=== PATIENT | female | born 1930 | race Caucasian/White ===

== ENCOUNTER 2016-10-04 16:40 | Inpatient (IN) | payer OTHER ==
[~2016-10-04] VITALS: Ht 160 cm; Wt 71.9 kg
[~2016-10-04 16:40] MED LIST: CARDURA2 M1 PO; HYDROCHLOROTHIA25 MG PO; LEVOTHROID,SYN0.1 MG PO; LO-DOSE ASPIRIN81 M2 PO; LOTENSIN40 MG PO; MIRALAX255 GM PO; NORVASC2.5 MG PO; SYNTHROID75 MCG PO; ULTRAM50 MG PO; VALSARTAN320 MG PO; VERAPAMIL ER180 MG PO
[2016-10-04] MEDS ORDERED: OMEPRAZOLE20 MG PO (17:28)
[2016-10-04] MEDS ORDERED: [UNRECOGNIZED DRUG - REMARK] (17:29)
[2016-10-04 17:43] LABS: HEMATOCRIT 33.6 % (36.0-46.0); MCH 30.7 PG (29.0-34.0); MCHC 35.4 G/DL (30.0-36.0); MCV 86.6 FL (83-99); MEAN PLAT.VOLUME 9.7 uM^3 (9.5-12.4); PLATELET COUNT 277 K/uL (156-360); RBC DIS.WIDTH-CV 12.2 % (11.8-14.6); RBC DIS.WIDTH-SD 37.9 % (39-53); RED BLOOD COUNT 3.88 M/uL (3.80-5.20); WHITE BLOOD COUNT 12.2 K/uL (4.1-10.2)
[2016-10-04 17:53] LABS: CHLORIDE 107 mEq/L (99-109); POTASSIUM 4.1 mEq/L (3.7-5.4); SODIUM 137 mEq/L (136-147)
[2016-10-04 17:54] LABS: MAGNESIUM 1.6 mg/dL (1.3-2.7)
[2016-10-04 17:55] LABS: GLUCOSE 202 mg/dL (70-99)
[2016-10-04 17:57] LABS: ANION GAP 15 MEQ/L (2-14)
[2016-10-04 17:59] LABS: GFR ESTIMATE (CALCULATED) 45 mL/min/
[2016-10-04 18:00] LABS: UREA NITROGEN (BUN) 23 mg/dL (9-23)
[2016-10-04 18:05] LABS: TROP-I INTERPRETATION NEGATIVE; TROPONIN-I < 0.01 ng/mL (0.0-0.30)
[2016-10-04 18:10] LABS: INFLUENZA A VIRAL ANTIGEN NEGATIVE; INFLUENZA B VIRAL ANTIGEN NEGATIVE
[2016-10-04 21:14] LABS: ADD MIUA? YES; BILIRUBIN NEGATIVE; BLOOD NEGATIVE; COLOR YELLOW ((YELLOW)); GLUCOSE (STRIP) 250; KETONES 15; LEUKOCYTES SMALL; NITRITE NEGATIVE; PROTEIN (STRIP) NEGATIVE; SPECIFIC GRAVITY 1.019 (1.000-1.030); UROBILINOGEN 0.2 MG/DL (0.2-1.0)
[2016-10-04 21:25] LABS: BACTERIA NONE SEEN; CASTS NONE SEEN /LPF; CRYSTALS NONE SEEN; EPITHELIAL CELLS RARE; MUCUS NONE SEEN; PATHOLOGICAL CAST NONE SEEN; RED BLOOD CELLS 0-5 /HPF (0-5); SMALL ROUND CELL NONE SEEN; UCUL ADDED? NO; WHITE BLOOD CELLS 0-5 /HPF (0-5); YEAST-LIKE CELL NONE SEEN
[2016-10-04 23:21] VITALS: BP 196/89
[2016-10-04 23:39] LABS: POINT-OF-CARE METER ID UU13113700
[2016-10-05] VITALS (7 sets, daily range): BP systolic 137–191; BP diastolic 57–88
[2016-10-05 00:55] LABS: TROP-I INTERPRETATION NEGATIVE; TROPONIN-I < 0.01 ng/mL (0.0-0.30)
[2016-10-05 06:11] LABS: BASOPHIL COUNT 0.1 K/uL (0-0.1); EOSINOPHIL (%) 1.4 % (0-5); EOSINOPHIL COUNT 0.2 K/uL (0-0.3); IMMATURE GRANULOCYTE (%) 0.4 % (0.0-0.7); IMMATURE GRANULOCYTE COUNT 0.1 K/uL; LYMPHOCYTE COUNT 2.6 K/uL (1.0-2.8); MCH 30.2 PG (29.0-34.0); MCHC 34.1 G/DL (30.0-36.0); MCV 88.6 FL (83-99); MEAN PLAT.VOLUME 9.9 uM^3 (9.5-12.4); MONOCYTE (%) 7.8 % (3-12); MONOCYTE COUNT 0.9 K/uL (0-0.8); NEUTROPHIL (%) 66.9 % (45-76); NEUTROPHIL COUNT 7.5 K/uL (1.8-6.4); PLATELET COUNT 254 K/uL (156-360); RBC DIS.WIDTH-CV 12.5 % (11.8-14.6); RBC DIS.WIDTH-SD 40.6 % (39-53); RED BLOOD COUNT 3.61 M/uL (3.80-5.20); WHITE BLOOD COUNT 11.2 K/uL (4.1-10.2)
[2016-10-05 06:31] LABS: ALKALINE PHOSPHATASE 40 IU/L (3-129); ANION GAP 7 MEQ/L (2-14); CHLORIDE 107 MEQ/L (99-109); DIRECT BILIRUBIN 0.1 mg/dL (0.0-0.3); GFR ESTIMATE (CALCULATED) 50 mL/min/; GLUCOSE 98 mg/dL (70-99); HDL CHOLESTEROL 30 MG/DL (Desirable>=50); LDL CHOLESTEROL 112 mg/dL (Desirable<100); NON-HDL CHOLESTEROL 144 mg/dL (Desirable<160); POTASSIUM 3.9 MEQ/L (3.7-5.4); SAMPLE HEMOLYSIS CHECK 0; SAMPLE ICTERIC CHECK 0; SAMPLE LIPEMIA CHECK 0; SODIUM 140 MEQ/L (136-147); TOTAL BILIRUBIN 0.6 MG/DL (0.0-1.0); TOTAL CHOLESTEROL 174 mg/dL (Desirable<200); TRIGLYCERIDES 159 MG/DL (Normal: <150); UREA NITROGEN (BUN) 18 mg/dL (9-23)
[2016-10-05 06:43] LABS: TROP-I INTERPRETATION NEGATIVE; TROPONIN-I 0.01 ng/mL (0.0-0.30)
[2016-10-05 12:23] LABS: POINT-OF-CARE METER ID UU13113700
[2016-10-05] MEDS ORDERED: AMLODIPINE BES2.5 MG PO (16:42)
[2016-10-05] MEDS ORDERED: HYDRALAZINE HCL25 MG PO (16:42)
[2016-10-05 16:55] LABS: POINT-OF-CARE METER ID UU13113700
[2016-10-05 22:46] LABS: POINT-OF-CARE METER ID UU13113700
[2016-10-06 00:18] VITALS: BP 150/64
[2016-10-06 05:33] VITALS: BP 145/63
[2016-10-06 06:08] LABS: BASOPHIL COUNT 0.1 K/uL (0-0.1); EOSINOPHIL (%) 3.1 % (0-5); EOSINOPHIL COUNT 0.3 K/uL (0-0.3); HEMATOCRIT 31.6 % (36.0-46.0); IMMATURE GRANULOCYTE (%) 0.9 % (0.0-0.7); IMMATURE GRANULOCYTE COUNT 0.1 K/uL; LYMPHOCYTE COUNT 2.6 K/uL (1.0-2.8); MCH 30.7 PG (29.0-34.0); MCHC 33.9 G/DL (30.0-36.0); MCV 90.5 FL (83-99); MEAN PLAT.VOLUME 9.9 uM^3 (9.5-12.4); MONOCYTE (%) 9.7 % (3-12); NEUTROPHIL (%) 59.5 % (45-76); NEUTROPHIL COUNT 5.9 K/uL (1.8-6.4); PLATELET COUNT 248 K/uL (156-360); RBC DIS.WIDTH-SD 42.4 % (39-53); RED BLOOD COUNT 3.49 M/uL (3.80-5.20); WHITE BLOOD COUNT 9.9 K/uL (4.1-10.2)
[2016-10-06 06:29] LABS: ANION GAP 8 MEQ/L (2-14); CHLORIDE 107 MEQ/L (99-109); GFR ESTIMATE (CALCULATED) 50 mL/min/; GLUCOSE 94 mg/dL (70-99); POTASSIUM 4.1 MEQ/L (3.7-5.4); SAMPLE HEMOLYSIS CHECK 0; SAMPLE ICTERIC CHECK 0; SAMPLE LIPEMIA CHECK 0; SODIUM 139 MEQ/L (136-147); UREA NITROGEN (BUN) 18 mg/dL (9-23)
[2016-10-06 08:05] VITALS: BP 139/62
[2016-10-06 09:30] LABS: ALKALINE PHOSPHATASE 38 IU/L (3-129); DIRECT BILIRUBIN 0.1 mg/dL (0.0-0.3); TOTAL BILIRUBIN 0.5 MG/DL (0.0-1.0)
[2016-10-06 11:54] VITALS: BP 148/65
[2016-10-06 12:40] LABS: POINT-OF-CARE METER ID UU13113831
[2016-10-06 15:57] VITALS: BP 147/67
[2016-10-06 17:43] LABS: POINT-OF-CARE METER ID UU14162513
== END 2016-10-06 20:16 | disposition home or self-care (01) | DRG 312 ==
LOC: EME 16:40 → EDOF 21:06 → 5WEST 23:03
PROVIDERS: Emergency Medicine; Hospitalist; Physician Assistant Medical
DX: R55 Syncope and collapse (principal); I65.21 Occlusion and stenosis of right carotid artery; I65.01 Occlusion and stenosis of right vertebral artery; R11.2 Nausea with vomiting, unspecified; S00.212A Abrasion of left eyelid and periocular area, initial encounter; S00.12XA Contusion of left eyelid and periocular area, initial encounter; W18.30XA Fall on same level, unspecified, initial encounter; Y92.002 Bathroom of unspecified non-institutional (private) residence as the place of occurrence of the external cause; I10 Essential (primary) hypertension; E78.5 Hyperlipidemia, unspecified; E11.9 Type 2 diabetes mellitus without complications; K21.9 Gastro-esophageal reflux disease without esophagitis; K58.9 Irritable bowel syndrome, unspecified; E03.9 Hypothyroidism, unspecified; M19.90 Unspecified osteoarthritis, unspecified site; I73.9 Peripheral vascular disease, unspecified; G89.29 Other chronic pain; M54.5 Low back pain; Z66 Do not resuscitate; Z51.5 Encounter for palliative care; Z88.5 Allergy status to narcotic agent; Z79.82 Long term (current) use of aspirin
CPT/HCPCS: 70450; 70496; 70498; 71020; 80048; 80061; 80076; 81003; 82948; 83735; 84443; 84484; 85025; 85027; 87502; 93005; 93880; 99281; 99285; G0378; J0360; J1644; J1815; J2405; J7030

== ENCOUNTER 2016-10-17 21:13 | Emergency (ER) | payer OTHER ==
[~2016-10-17] VITALS: Ht 160 cm; Wt 70.5 kg
[~2016-10-17 21:13] MED LIST changes: +AMLODIPINE BES2.5 MG PO; +HYDRALAZINE HCL25 MG PO; +OMEPRAZOLE20 MG PO; +[UNRECOGNIZED DRUG - REMARK]
[2016-10-17 22:21] LABS: BASOPHIL COUNT 0.1 K/uL (0-0.1); EOSINOPHIL (%) 0.7 % (0-5); EOSINOPHIL COUNT 0.1 K/uL (0-0.3); HEMATOCRIT 34.8 % (36.0-46.0); IMMATURE GRANULOCYTE (%) 0.5 % (0.0-0.7); IMMATURE GRANULOCYTE COUNT 0.4 K/uL; LYMPHOCYTE COUNT 1.1 K/uL (1.0-2.8); MCH 31.1 PG (29.0-34.0); MCHC 35.3 G/DL (30.0-36.0); MCV 88.1 FL (83-99); MONOCYTE COUNT 0.5 K/uL (0-0.8); NEUTROPHIL COUNT 6.4 K/uL (1.8-6.4); RBC DIS.WIDTH-CV 12.4 % (11.8-14.6); RED BLOOD COUNT 3.95 M/uL (3.80-5.20); WHITE BLOOD COUNT 8.2 K/uL (4.1-10.2)
[2016-10-17 22:25] LABS: MEAN PLAT.VOLUME 9.7 uM^3 (9.5-12.4)
[2016-10-17 22:36] LABS: CHLORIDE 107 mEq/L (99-109); SODIUM 138 mEq/L (136-147)
[2016-10-17 22:37] LABS: GLUCOSE 178 mg/dL (70-99)
[2016-10-17 22:39] LABS: ANION GAP 11 MEQ/L (2-14)
[2016-10-17 22:41] LABS: GFR ESTIMATE (CALCULATED) 45 mL/min/
[2016-10-17 22:42] LABS: UREA NITROGEN (BUN) 19 mg/dL (9-23)
[2016-10-17 22:43] LABS: TROP-I INTERPRETATION NEGATIVE; TROPONIN-I < 0.01 ng/mL (0.0-0.30)
[2016-10-17 22:48] LABS: PLATELET COUNT 327 K/uL (156-360)
[2016-10-18] MEDS ORDERED: LABETALOL HCL100 MG PO (00:19)
[2016-10-18 00:23] VITALS: BP 149/55
[2016-10-19] MEDS ORDERED: NORVASC2.5 MG PO (17:03)
[2016-10-19] MEDS ORDERED: BENTYL10 MG PO (17:05)
== END 2016-10-18 00:48 | disposition home or self-care (01) ==
LOC: EME → EDBD 21:13 → EME 10-18 00:48
PROVIDERS: Emergency Medicine
DX: I10 Essential (primary) hypertension (principal); E78.5 Hyperlipidemia, unspecified; E03.9 Hypothyroidism, unspecified; Z79.82 Long term (current) use of aspirin
CPT/HCPCS: 71010; 80048; 84484; 85025; 93005; 99281; 99284; J2405; J7040

== ENCOUNTER 2016-10-19 14:31 | Inpatient (IN) | payer OTHER ==
[~2016-10-19] VITALS: Ht 160 cm; Wt 69.7 kg
[~2016-10-19 14:31] MED LIST changes: +LABETALOL HCL100 MG PO
[2016-10-19 15:06] LABS: HEMATOCRIT 34.7 % (36.0-46.0); MCH 31.2 PG (29.0-34.0); MCHC 34.9 G/DL (30.0-36.0); MCV 89.4 FL (83-99); MEAN PLAT.VOLUME 9.4 uM^3 (9.5-12.4); PLATELET COUNT 330 K/uL (156-360); RBC DIS.WIDTH-CV 12.5 % (11.8-14.6); RBC DIS.WIDTH-SD 39.6 % (39-53); RED BLOOD COUNT 3.88 M/uL (3.80-5.20); WHITE BLOOD COUNT 9.2 K/uL (4.1-10.2)
[2016-10-19 15:14] LABS: CHLORIDE 107 mEq/L (99-109); POTASSIUM 4.5 mEq/L (3.7-5.4)
[2016-10-19 15:15] LABS: SODIUM 140 mEq/L (136-147)
[2016-10-19 15:16] LABS: GLUCOSE 172 mg/dL (70-99)
[2016-10-19 15:18] LABS: ANION GAP 11 MEQ/L (2-14)
[2016-10-19 15:20] LABS: GFR ESTIMATE (CALCULATED) 45 mL/min/
[2016-10-19 15:21] LABS: UREA NITROGEN (BUN) 17 mg/dL (9-23)
[2016-10-19 15:28] LABS: TROP-I INTERPRETATION NEGATIVE; TROPONIN-I 0.01 ng/mL (0.0-0.30)
[2016-10-19] MEDS ORDERED: NORVASC2.5 MG PO (17:03)
[2016-10-19] MEDS ORDERED: BENTYL10 MG PO (17:05)
[2016-10-19 19:22] VITALS: BP 182/70
[2016-10-19 19:48] VITALS: BP 182/70
[2016-10-19 21:19] LABS: TROP-I INTERPRETATION NEGATIVE; TROPONIN-I 0.01 ng/mL (0.0-0.30)
[2016-10-19 22:00] VITALS: BP 173/65
[2016-10-19 22:29] LABS: METH RESISTANT S AUREUS PCR POSITIVE (NEGATIVE)
[2016-10-19 22:42] LABS: PROBE CHECK PASS
[2016-10-20] VITALS (8 sets, daily range): BP systolic 129–172; BP diastolic 42–84
[2016-10-20 04:17] LABS: TROP-I INTERPRETATION NEGATIVE; TROPONIN-I 0.01 ng/mL (0.0-0.30)
[2016-10-20 05:47] LABS: HEMATOCRIT 31.2 % (36.0-46.0); MCH 30.3 PG (29.0-34.0); MCHC 33.3 G/DL (30.0-36.0); PLATELET COUNT 297 K/uL (156-360); RBC DIS.WIDTH-CV 12.8 % (11.8-14.6); RBC DIS.WIDTH-SD 42.5 % (39-53); RED BLOOD COUNT 3.43 M/uL (3.80-5.20); WHITE BLOOD COUNT 11.5 K/uL (4.1-10.2)
[2016-10-20 06:07] LABS: ANION GAP 9 MEQ/L (2-14); CHLORIDE 108 MEQ/L (99-109); GFR ESTIMATE (CALCULATED) 56 mL/min/; POTASSIUM 3.8 MEQ/L (3.7-5.4); SAMPLE HEMOLYSIS CHECK 0; SAMPLE ICTERIC CHECK 0; SAMPLE LIPEMIA CHECK 0; SODIUM 140 MEQ/L (136-147); UREA NITROGEN (BUN) 15 mg/dL (9-23)
[2016-10-20 06:09] LABS: GLUCOSE 81 mg/dL (70-99)
[2016-10-20 08:26] LABS: MAGNESIUM 1.9 mg/dl (1.3-2.7)
[2016-10-21] VITALS (8 sets, daily range): BP systolic 117–216; BP diastolic 44–93
[2016-10-21 07:59] LABS: INTER. NORMALIZED RATIO 1.1; PROTHROMBIN TIME 11.4 (9.2-11.2)
[2016-10-21 08:12] LABS: ANION GAP 6 MEQ/L (2-14); CHLORIDE 112 MEQ/L (99-109); GFR ESTIMATE (CALCULATED) 56 mL/min/; GLUCOSE 98 mg/dL (70-99); MAGNESIUM 1.8 mg/dl (1.3-2.7); POTASSIUM 4.1 MEQ/L (3.7-5.4); SAMPLE HEMOLYSIS CHECK 0; SAMPLE ICTERIC CHECK 0; SAMPLE LIPEMIA CHECK 0; SODIUM 142 MEQ/L (136-147); UREA NITROGEN (BUN) 10 mg/dL (9-23)
[2016-10-21 08:26] LABS: EOSINOPHIL (%) 3.5 % (0-5); EOSINOPHIL COUNT 0.2 K/uL (0-0.3); HEMATOCRIT 29.5 % (36.0-46.0); IMMATURE GRANULOCYTE (%) 0.4 % (0.0-0.7); LYMPHOCYTE COUNT 1.8 K/uL (1.0-2.8); MCH 30.7 PG (29.0-34.0); MCHC 33.6 G/DL (30.0-36.0); MCV 91.3 FL (83-99); MONOCYTE (%) 10.4 % (3-12); MONOCYTE COUNT 0.7 K/uL (0-0.8); NEUTROPHIL (%) 59.5 % (45-76); NEUTROPHIL COUNT 4.1 K/uL (1.8-6.4); PLATELET COUNT 226 K/uL (156-360); RBC DIS.WIDTH-CV 12.8 % (11.8-14.6); RBC DIS.WIDTH-SD 42.9 % (39-53); RED BLOOD COUNT 3.23 M/uL (3.80-5.20)
[2016-10-21 08:29] LABS: WHITE BLOOD COUNT 6.8 K/uL (4.1-10.2)
[2016-10-22] VITALS (8 sets, daily range): BP systolic 110–177; BP diastolic 49–76
[2016-10-22 05:55] LABS: BASOPHIL COUNT 0.1 K/uL (0-0.1); EOSINOPHIL (%) 1.8 % (0-5); EOSINOPHIL COUNT 0.2 K/uL (0-0.3); HEMATOCRIT 31.5 % (36.0-46.0); IMMATURE GRANULOCYTE (%) 0.6 % (0.0-0.7); IMMATURE GRANULOCYTE COUNT 0.1 K/uL; LYMPHOCYTE COUNT 0.6 K/uL (1.0-2.8); MCH 30.1 PG (29.0-34.0); MCHC 33.3 G/DL (30.0-36.0); MCV 90.3 FL (83-99); MEAN PLAT.VOLUME 9.7 uM^3 (9.5-12.4); MONOCYTE (%) 9.2 % (3-12); MONOCYTE COUNT 0.8 K/uL (0-0.8); NEUTROPHIL (%) 80.8 % (45-76); NEUTROPHIL COUNT 6.6 K/uL (1.8-6.4); PLATELET COUNT 227 K/uL (156-360); RBC DIS.WIDTH-SD 42.1 % (39-53); RED BLOOD COUNT 3.49 M/uL (3.80-5.20); WHITE BLOOD COUNT 8.1 K/uL (4.1-10.2)
[2016-10-22 06:20] LABS: ANION GAP 9 MEQ/L (2-14); CHLORIDE 109 MEQ/L (99-109); GFR ESTIMATE (CALCULATED) 56 mL/min/; GLUCOSE 89 mg/dL (70-99); MAGNESIUM 1.6 mg/dl (1.3-2.7); POTASSIUM 3.7 MEQ/L (3.7-5.4); SAMPLE HEMOLYSIS CHECK 0; SAMPLE ICTERIC CHECK 0; SAMPLE LIPEMIA CHECK 0; SODIUM 140 MEQ/L (136-147); UREA NITROGEN (BUN) 9 mg/dL (9-23)
[2016-10-22] MEDS ORDERED: APRESOLINE10 MG PO (13:19)
== END 2016-10-22 16:54 | disposition home or self-care (01) | DRG 243 ==
LOC: EME → EDBD 14:31 → EDOF 16:14 → 4WEST 16:14
PROVIDERS: Emergency Medicine; Hospitalist; Internal Medicine; Internal Medicine Cardiovascular Disease
DX: I44.2 Atrioventricular block, complete (principal); I24.9 Acute ischemic heart disease, unspecified; I65.23 Occlusion and stenosis of bilateral carotid arteries; R55 Syncope and collapse; E03.9 Hypothyroidism, unspecified; K21.9 Gastro-esophageal reflux disease without esophagitis; I10 Essential (primary) hypertension; I45.5 Other specified heart block; Z90.49 Acquired absence of other specified parts of digestive tract; R73.03 Prediabetes; Z86.14 Personal history of Methicillin resistant Staphylococcus aureus infection
CPT/HCPCS: 71010; 80048; 83735; 84100; 84484; 85025; 85027; 85610; 87641; 93005; 99281; 99285; C1785; C1892; C1894; C1898; J0360; J0690; J1644; J2250; J2405; J3010; J7030; S0020

== ENCOUNTER 2016-10-30 08:53 | Inpatient (IN) | payer OTHER ==
[~2016-10-30] VITALS: Ht 160 cm; Wt 68.1 kg
[~2016-10-30 08:53] MED LIST changes: +APRESOLINE10 MG PO; +APRESOLINE25 MG PO; +BENTYL10 MG PO
[2016-11-11 09:24] VITALS: BP 175/78
[2016-11-11 10:45] LABS: METH RESISTANT S AUREUS PCR NEGATIVE (NEGATIVE); PROBE CHECK PASS; SPECIMEN PROCESSING CONTROL PASS
[2016-11-11] MEDS ORDERED: HYDROCODON-ACE1 EAC7 PO (16:54)
[2016-11-11 20:00] VITALS: BP 164/65; BP 165/65
[2016-11-11 20:40] LABS: TROP-I INTERPRETATION NEGATIVE; TROPONIN-I < 0.01 ng/mL (0.0-0.30)
[2016-11-11 21:00] VITALS: BP 165/52
[2016-11-11 22:00] VITALS: BP 159/53
[2016-11-11 22:06] LABS: METH RESISTANT S AUREUS PCR NEGATIVE (NEGATIVE)
[2016-11-11 22:07] LABS: PROBE CHECK PASS; SPECIMEN PROCESSING CONTROL PASS
[2016-11-11 23:00] VITALS: BP 117/41
[2016-11-12] VITALS: BP 118/45
[2016-11-12 04:00] VITALS: BP 123/47
[2016-11-12 06:00] VITALS: BP 139/51
[2016-11-12 06:41] LABS: TROP-I INTERPRETATION NEGATIVE; TROPONIN-I < 0.01 ng/mL (0.0-0.30)
[2016-11-12 08:00] VITALS: BP 163/59
[2016-11-12 10:00] VITALS: BP 130/42
[2016-11-12 12:00] VITALS: BP 155/57
[2016-11-12] MEDS ORDERED: LABETALOL HCL100 MG PO (14:09)
[2016-11-12] MEDS ORDERED: ATORVASTATIN CA40 MG PO (14:10)
== END 2016-11-12 14:46 | disposition home or self-care (01) | DRG 39 ==
LOC: 2SOUTH 08:53 → 4WEST 11-11 19:52
PROVIDERS: Internal Medicine Cardiovascular Disease; Surgery
DX: I65.21 Occlusion and stenosis of right carotid artery (principal); I10 Essential (primary) hypertension; E03.9 Hypothyroidism, unspecified; K21.9 Gastro-esophageal reflux disease without esophagitis; R94.31 Abnormal electrocardiogram [ECG] [EKG]; K58.9 Irritable bowel syndrome, unspecified; E11.9 Type 2 diabetes mellitus without complications; M19.90 Unspecified osteoarthritis, unspecified site; I73.9 Peripheral vascular disease, unspecified; Z79.82 Long term (current) use of aspirin; Z60.2 Problems related to living alone; Z95.0 Presence of cardiac pacemaker
CPT/HCPCS: 84484; 87641; 93005; C1768; J0690; J1170; J1644; J1650; J2405; J2720; J2765; J2795; J7050

== ENCOUNTER 2016-11-22 13:45 | Observation (INO) | payer OTHER ==
[~2016-11-22] VITALS: Ht 160 cm; Wt 67.0 kg
[~2016-11-22 13:45] MED LIST changes: +ATORVASTATIN CA40 MG PO; +HYDROCODON-ACE1 EAC7 PO
[2016-11-22 14:39] LABS: BASOPHIL COUNT 0.1 K/uL (0-0.1); EOSINOPHIL (%) 2.7 % (0-5); EOSINOPHIL COUNT 0.3 K/uL (0-0.3); IMMATURE GRANULOCYTE (%) 0.5 % (0.0-0.7); IMMATURE GRANULOCYTE COUNT 0.1 K/uL; INSTRUMENT ABS NEUTROPHIL CT 7.1 K/uL; LYMPHOCYTE COUNT 1.4 K/uL (1.0-2.8); MCH 30.1 PG (29.0-34.0); MCHC 33.6 G/DL (30.0-36.0); MCV 89.4 FL (83-99); MEAN PLAT.VOLUME 9.4 uM^3 (9.5-12.4); MONOCYTE COUNT 0.6 K/uL (0-0.8); NEUTROPHIL (%) 75.3 % (45-76); NEUTROPHIL COUNT 7.1 K/uL (1.8-6.4); PLATELET COUNT 333 K/uL (156-360); RBC DIS.WIDTH-CV 12.8 % (11.8-14.6); RBC DIS.WIDTH-SD 42.1 % (39-53); RED BLOOD COUNT 3.69 M/uL (3.80-5.20); WHITE BLOOD COUNT 9.4 K/uL (4.1-10.2)
[2016-11-22 14:48] LABS: CHLORIDE 108 mEq/L (99-109); POTASSIUM 4.3 mEq/L (3.7-5.4); SODIUM 141 mEq/L (136-147)
[2016-11-22 14:49] LABS: INTER. NORMALIZED RATIO 1.1; PROTHROMBIN TIME 11.1 (9.2-11.2); PTT 26.4 (25-32)
[2016-11-22 14:50] LABS: GLUCOSE 165 mg/dL (70-99)
[2016-11-22 14:51] LABS: ANION GAP 12 MEQ/L (2-14)
[2016-11-22 14:54] LABS: GFR ESTIMATE (CALCULATED) 56 mL/min/
[2016-11-22 14:55] LABS: UREA NITROGEN (BUN) 10 mg/dL (9-23)
[2016-11-22 15:00] LABS: TROP-I INTERPRETATION NEGATIVE; TROPONIN-I < 0.01 ng/mL (0.0-0.30)
[2016-11-22] MEDS ORDERED: LABETALOL HCL100 MG PO (16:31)
[2016-11-22] MEDS ORDERED: FLONASE16 G1 BOTH NARES (16:31)
[2016-11-22] MEDS ORDERED: ATORVASTATIN CA40 MG PO (16:32)
[2016-11-22 19:27] VITALS: BP 174/79
[2016-11-22 22:27] LABS: TROP-I INTERPRETATION INDETERMINATE; TROPONIN-I 0.42 ng/mL (0.0-0.30)
[2016-11-23] VITALS: BP 120/81
[2016-11-23 03:27] LABS: TROP-I INTERPRETATION INDETERMINATE; TROPONIN-I 0.37 ng/mL (0.0-0.30)
[2016-11-23 04:00] VITALS: BP 139/65
[2016-11-23 07:41] VITALS: BP 155/71
[2016-11-23 12:13] VITALS: BP 160/69
[2016-11-23] MEDS ORDERED: VALSARTAN160 MG PO (12:13)
== END 2016-11-23 14:00 | disposition home or self-care (01) ==
LOC: EME → EDBD 13:45 → EDOF 16:41 → 5WEST 19:10
PROVIDERS: Emergency Medicine; Internal Medicine
DX: R07.9 Chest pain, unspecified (principal); I95.9 Hypotension, unspecified; D64.9 Anemia, unspecified; R42 Dizziness and giddiness; E11.9 Type 2 diabetes mellitus without complications; I10 Essential (primary) hypertension; E78.5 Hyperlipidemia, unspecified; E03.9 Hypothyroidism, unspecified; Z95.1 Presence of aortocoronary bypass graft; K21.9 Gastro-esophageal reflux disease without esophagitis
CPT/HCPCS: 71010; 80048; 84484; 85025; 85610; 85730; 93005; 99281; 99285; G0378; J1650; J2405

== ENCOUNTER 2016-11-26 16:30 | Inpatient (IN) | payer OTHER ==
[~2016-11-26] VITALS: Ht 165.1 cm; Wt 67.1 kg
[~2016-11-26 16:30] MED LIST changes: +FLONASE16 G1 BOTH NARES; +VALSARTAN160 MG PO
[2016-11-26 17:43] LABS: BASOPHIL COUNT 0.1 K/uL (0-0.1); EOSINOPHIL (%) 3.2 % (0-5); EOSINOPHIL COUNT 0.3 K/uL (0-0.3); HEMATOCRIT 34.2 % (36.0-46.0); IMMATURE GRANULOCYTE (%) 0.5 % (0.0-0.7); IMMATURE GRANULOCYTE COUNT 0.1 K/uL; INSTRUMENT ABS NEUTROPHIL CT 6.5 K/uL; LYMPHOCYTE COUNT 1.8 K/uL (1.0-2.8); MCH 29.7 PG (29.0-34.0); MCHC 33.6 G/DL (30.0-36.0); MCV 88.4 FL (83-99); MEAN PLAT.VOLUME 9.8 uM^3 (9.5-12.4); MONOCYTE COUNT 0.8 K/uL (0-0.8); NEUTROPHIL (%) 68.3 % (45-76); NEUTROPHIL COUNT 6.5 K/uL (1.8-6.4); PLATELET COUNT 360 K/uL (156-360); RBC DIS.WIDTH-CV 12.9 % (11.8-14.6); RBC DIS.WIDTH-SD 41.3 % (39-53); RED BLOOD COUNT 3.87 M/uL (3.80-5.20); WHITE BLOOD COUNT 9.5 K/uL (4.1-10.2)
[2016-11-26 17:54] LABS: INTER. NORMALIZED RATIO 1.1; PROTHROMBIN TIME 11.6 (9.2-11.2)
[2016-11-26 18:00] LABS: CHLORIDE 104 mEq/L (99-109); POTASSIUM 4.1 mEq/L (3.7-5.4); SODIUM 138 mEq/L (136-147)
[2016-11-26 18:01] LABS: GLUCOSE 188 mg/dL (70-99)
[2016-11-26 18:03] LABS: ANION GAP 10 MEQ/L (2-14)
[2016-11-26 18:04] LABS: TROP-I INTERPRETATION NEGATIVE; TROPONIN-I 0.03 ng/mL (0.0-0.30)
[2016-11-26 18:05] LABS: GFR ESTIMATE (CALCULATED) 41 mL/min/
[2016-11-26 18:06] LABS: UREA NITROGEN (BUN) 16 mg/dL (9-23)
[2016-11-26] MEDS ORDERED: VALSARTAN160 MG PO (19:21)
[2016-11-26 19:50] LABS: TROP-I INTERPRETATION NEGATIVE; TROPONIN-I 0.04 ng/mL (0.0-0.30)
[2016-11-27] VITALS (8 sets, daily range): BP systolic 110–173; BP diastolic 53–76
[2016-11-27 02:21] LABS: TROP-I INTERPRETATION NEGATIVE; TROPONIN-I 0.03 ng/mL (0.0-0.30)
[2016-11-27 08:51] LABS: ALKALINE PHOSPHATASE 40 IU/L (3-129); ANION GAP 7 MEQ/L (2-14); CHLORIDE 105 MEQ/L (99-109); GFR ESTIMATE (CALCULATED) 50 mL/min/; POTASSIUM 4.3 MEQ/L (3.7-5.4); SAMPLE HEMOLYSIS CHECK 0; SAMPLE ICTERIC CHECK 0; SAMPLE LIPEMIA CHECK 0; SODIUM 138 MEQ/L (136-147); TOTAL BILIRUBIN 0.6 MG/DL (0.0-1.0); UREA NITROGEN (BUN) 16 mg/dL (9-23)
[2016-11-27 09:05] LABS: GLUCOSE 92 mg/dL (70-99)
[2016-11-27 09:34] LABS: HEMATOCRIT 31.6 % (36.0-46.0); MCH 30.1 PG (29.0-34.0); MCHC 33.2 G/DL (30.0-36.0); MCV 90.5 FL (83-99); MEAN PLAT.VOLUME 10.1 uM^3 (9.5-12.4); PLATELET COUNT 304 K/uL (156-360); RBC DIS.WIDTH-CV 13.2 % (11.8-14.6); RBC DIS.WIDTH-SD 43.8 % (39-53); RED BLOOD COUNT 3.49 M/uL (3.80-5.20); WHITE BLOOD COUNT 7.7 K/uL (4.1-10.2)
[2016-11-27 10:11] LABS: TROP-I INTERPRETATION NEGATIVE; TROPONIN-I 0.03 ng/mL (0.0-0.30)
[2016-11-28 04:41] VITALS: BP 130/61
[2016-11-28 07:09] LABS: BASOPHIL COUNT 0.1 K/uL (0-0.1); EOSINOPHIL (%) 8.5 % (0-5); EOSINOPHIL COUNT 0.6 K/uL (0-0.3); HEMATOCRIT 29.2 % (36.0-46.0); IMMATURE GRANULOCYTE (%) 0.8 % (0.0-0.7); IMMATURE GRANULOCYTE COUNT 0.1 K/uL; INSTRUMENT ABS NEUTROPHIL CT 4.2 K/uL; LYMPHOCYTE COUNT 1.8 K/uL (1.0-2.8); MCHC 32.5 G/DL (30.0-36.0); MCV 92.1 FL (83-99); MONOCYTE (%) 9.2 % (3-12); MONOCYTE COUNT 0.7 K/uL (0-0.8); NEUTROPHIL (%) 56.1 % (45-76); NEUTROPHIL COUNT 4.2 K/uL (1.8-6.4); PLATELET COUNT 266 K/uL (156-360); RBC DIS.WIDTH-CV 13.3 % (11.8-14.6); RBC DIS.WIDTH-SD 44.9 % (39-53); RED BLOOD COUNT 3.17 M/uL (3.80-5.20); WHITE BLOOD COUNT 7.4 K/uL (4.1-10.2)
[2016-11-28 07:51] LABS: ANION GAP 8 MEQ/L (2-14); CHLORIDE 110 MEQ/L (99-109); GFR ESTIMATE (CALCULATED) 50 mL/min/; GLUCOSE 99 mg/dL (70-99); MAGNESIUM 1.8 mg/dl (1.3-2.7); POTASSIUM 4.1 MEQ/L (3.7-5.4); SAMPLE HEMOLYSIS CHECK 0; SAMPLE ICTERIC CHECK 0; SAMPLE LIPEMIA CHECK 0; SODIUM 141 MEQ/L (136-147); UREA NITROGEN (BUN) 16 mg/dL (9-23)
[2016-11-28 08:50] VITALS: BP 140/64
[2016-11-28 11:33] VITALS: BP 198/91
[2016-11-28 16:02] VITALS: BP 170/82
[2016-11-28 20:44] VITALS: BP 151/69
[2016-11-29 00:15] VITALS: BP 138/63
[2016-11-29 04:17] VITALS: BP 130/61
[2016-11-29 06:15] LABS: HEMATOCRIT 30.1 % (36.0-46.0); MCH 29.6 PG (29.0-34.0); MCHC 32.6 G/DL (30.0-36.0); MCV 90.9 FL (83-99); MEAN PLAT.VOLUME 9.4 uM^3 (9.5-12.4); PLATELET COUNT 255 K/uL (156-360); RBC DIS.WIDTH-CV 13.2 % (11.8-14.6); RBC DIS.WIDTH-SD 44.1 % (39-53); RED BLOOD COUNT 3.31 M/uL (3.80-5.20); WHITE BLOOD COUNT 6.8 K/uL (4.1-10.2)
[2016-11-29 07:49] VITALS: BP 147/65
[2016-11-29 11:13] VITALS: BP 178/71
[2016-11-29 15:26] VITALS: BP 142/58
[2016-11-29] MEDS ORDERED: ELIQUIS5 MG PO (15:44)
[2016-11-29] MEDS ORDERED: ELIQUIS2.5 MG PO (15:44)
[2016-11-29] MEDS ORDERED: VALSARTAN160 MG PO (15:44)
== END 2016-11-29 16:51 | disposition home health service (06) | DRG 176 ==
LOC: EME → EDBD 16:30 → 4EAST 20:07 → EDOF 20:07 → 4EAST 11-27 00:58
PROVIDERS: Emergency Medicine; Hospitalist; Internal Medicine
DX: I26.99 Other pulmonary embolism without acute cor pulmonale (principal); R94.31 Abnormal electrocardiogram [ECG] [EKG]; E86.1 Hypovolemia; R07.9 Chest pain, unspecified; D63.8 Anemia in other chronic diseases classified elsewhere; I10 Essential (primary) hypertension; I25.10 Atherosclerotic heart disease of native coronary artery without angina pectoris; E78.5 Hyperlipidemia, unspecified; E11.9 Type 2 diabetes mellitus without complications; E03.9 Hypothyroidism, unspecified; K21.9 Gastro-esophageal reflux disease without esophagitis; M19.90 Unspecified osteoarthritis, unspecified site; I73.9 Peripheral vascular disease, unspecified; Z95.820 Peripheral vascular angioplasty status with implants and grafts; Z95.0 Presence of cardiac pacemaker; Z88.5 Allergy status to narcotic agent
CPT/HCPCS: 71020; 71275; 76770; 80048; 80053; 82272; 83735; 84484; 85025; 85027; 85347; 85610; 85730; 93005; 93970; 93975; 99281; 99285; C1769; C1887; J0461; J1644; J2250; J3010; J7040